=== PATIENT | female | born 1995 | race Caucasian/White ===

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

== ENCOUNTER → 2017-03-19 | Outpatient (CLI) | payer BC | END | disposition home or self-care (01) | LOC: LABWHC1 13:43 | PROVIDERS: ATTEND Internal Medicine Endocrinology, Diabetes & Metabolism | DX: E03.8 Other specified hypothyroidism (principal); E55.9 Vitamin D deficiency, unspecified | CPT/HCPCS: 36415; 82306; 84443 ==

== ENCOUNTER → 2017-08-23 | Outpatient (CLI) | payer BC | END | disposition home or self-care (01) | LOC: LABWHC1 13:59 | PROVIDERS: ATTEND Internal Medicine Endocrinology, Diabetes & Metabolism | DX: E03.8 Other specified hypothyroidism (principal) | CPT/HCPCS: 36415; 84443 ==

== ENCOUNTER → 2018-05-27 | Outpatient (CLI) | payer BC | END | disposition home or self-care (01) | LOC: RADECHMAIN 11:57 | PROVIDERS: ATTEND Family Medicine | DX: R00.2 Palpitations (principal) | CPT/HCPCS: 93270; 93271 ==

== ENCOUNTER → 2018-09-18 | Outpatient (CLI) | payer BC | END | disposition home or self-care (01) | LOC: LABWHC1 14:48 | PROVIDERS: ATTEND Internal Medicine Endocrinology, Diabetes & Metabolism | DX: E55.9 Vitamin D deficiency, unspecified (principal); E03.9 Hypothyroidism, unspecified | CPT/HCPCS: 36415; 82306; 84443 ==

== ENCOUNTER → 2019-04-21 | Outpatient (CLI) | payer BC ==
[2019-04-22 01:44] LABS: T4, Free (Free Thyroxine) 1.5 ng/dL (0.80-1.80)
[2019-04-22 01:47] LABS: Thyroid Peroxidase Antibodies 479.5 U/mL (0.0-60.0)
== END | disposition home or self-care (01) ==
LOC: LABWHC1 16:28
PROVIDERS: ATTEND Internal Medicine Endocrinology, Diabetes & Metabolism
DX: E03.8 Other specified hypothyroidism (principal); E55.9 Vitamin D deficiency, unspecified
CPT/HCPCS: 36415; 82306; 84439; 84443; 84480; 86376

== ENCOUNTER 2019-09-29 02:22 | Emergency (ER) | payer BC ==
[2019-09-29 02:27] VITALS: BP 133/97; PULSE 99; RESP 18; TEMP 98.1
[2019-09-29] MEDS ORDERED: TOPICAL SKIN ADHESIVE 1 EACH AMP TOPICAL ONE (02:36)
[2019-09-29] MEDS ORDERED: ERYTHROMYCIN 5 MG/GM OPHTH OINT 3.5 GM TUBE RIGHT EYE STA (02:54)
--- NOTE | 2019-09-29 03:07 | ED ---
Wound/Laceration HPI - General Chief Complaint: Wound/Laceration Stated Complaint: Cat scratch Time Seen by Provider: 09/29/19 02:28 Source: patient Mode of arrival: ambulatory Limitations: no limitations - History of Present Illness Initial Comments: Patient is 24-year-old female presenting to emergency Department with a chief complaint of a cat scratch. Patient states she was playing with her cat when a scratch the right lower eyelid. Patient reports it was no injury to the eye. Denies any eye redness, itchiness or pain. Denies any pain with extra ocular movements. States there is a very small laceration on the right lower eyelid. Denies any blurry vision. States tetanus is up-to-date. - Related Data Home Medications Medication Instructions Recorded Confirmed Norgestimate-Ethinyl Estradiol 1 tab PO DAILY 12/22/15 12/22/15 [Ortho Tri-Cyclen 28 Tablet] Previous Rx's Medication Instructions Recorded Levothyroxine Sodium [Synthroid] 100 mcg PO DAILY #30 tab 12/22/15 Levothyroxine Sodium [Synthroid] 125 mcg PO DAILY #30 tablet 12/22/15 Azithromycin [Zithromax Z-pack] 0 mg PO DIRECTED #1 pack 09/29/19 Allergies Allergy/AdvReac Type Severity Reaction Status Date / Time sulfamethoxazole Allergy Swelling Verified 09/29/19 02:27 [From Bactrim] trimethoprim [From Bactrim] Allergy Swelling Verified 09/29/19 02:27 Review of Systems ROS Statement: Those systems with pertinent positive or pertinent negative responses have been documented in the HPI. ROS Other: All systems not noted in ROS Statement are negative. Past Medical History Past Medical History: Asthma, Thyroid Disorder Additional Past Medical History / Comment(s): Low Vitamin D. History of Any Multi-Drug Resistant Organisms: None Reported Past Surgical History: No Surgical Hx Reported Additional Past Surgical History / Comment(s): [place] tooth extraction Past Psychological History: No Psychological Hx Reported Past Alcohol Use History: None Reported Past Drug Use History: None Reported General Exam Limitations: no limitations General appearance: alert, in no apparent distress Head exam: Present: atraumatic, normocephalic, normal inspection Eye exam: Present: normal appearance, PERRL, EOMI. Absent: other (No pain with extraocular movements, no entrapment. Very small, superficial laceration of the right lower eyelid.) Pupils: Present: normal accommodation ENT exam: Present: normal exam, mucous membranes dry Neck exam: Present: normal inspection, full ROM. Absent: tenderness Respiratory exam: Present: normal lung sounds bilaterally. Absent: respiratory distress, wheezes Cardiovascular Exam: Present: regular rate, normal rhythm, normal heart sounds Extremities exam: Present: normal inspection, full ROM. Absent: tenderness Back exam: Present: normal inspection, full ROM. Absent: tenderness Neurological exam: Present: alert, oriented X3, normal gait Psychiatric exam: Present: normal affect, normal mood Skin exam: Present: warm, dry, intact, normal color Course Vital Signs 09/29/19 02:23 Temperature 98.1 F Pulse Rate 99 Respiratory 18 Rate Blood Pressure 133/97 O2 Sat by Pulse 99 Oximetry Medical Decision Making - Medical Decision Making patient is a 24-year-old female presenting to emergency department with chief complaint cat scratch. On exam patient has a very small, superficial laceration the right lower eyelid. No entrapment, no pain with extraocular movements, no foreign body. Laceration site was repaired with small amounts of tissue adhesive. Patient given erythromycin ointment to remove any access tissue adhesive that was stuck on the eyelashes. Patient will also be started on azithromycin to prevent development of cat scratch disease. Return parameters were thoroughly discussed the patient was worsening and agreeable. Case discussed with physician. Disposition Clinical Impression: Laceration, Cat scratch of face Disposition: HOME SELF-CARE Condition: Stable Instructions (If sedation given, give patient instructions): Skin Adhesive Care (ED) Additional Instructions: Take prescribed medication as directed. Follow with primary care physician. Return to emergency department if symptoms worsen. Prescriptions: Azithromycin [Zithromax Z-pack] 0 mg PO DIRECTED #1 pack Is patient prescribed a controlled substance at d/c from ED?: No Referrals: Suleiman Almeida DO [Primary Care Provider] - 1-2 days Time of Disposition: 03:06
== END 2019-09-29 03:24 | disposition home or self-care (01) ==
LOC: EC 02:22
DX: S01.111A Laceration without foreign body of right eyelid and periocular area, initial encounter (principal); Z79.3 Long term (current) use of hormonal contraceptives; Z88.1 Allergy status to other antibiotic agents; Z88.2 Allergy status to sulfonamides; W55.03XA Scratched by cat, initial encounter
CPT/HCPCS: 12011; 99282

== ENCOUNTER → 2019-10-21 | Outpatient (CLI) | payer BC | END | disposition home or self-care (01) | LOC: LABWHC1 14:18 | PROVIDERS: ATTEND Internal Medicine Endocrinology, Diabetes & Metabolism | DX: E03.8 Other specified hypothyroidism (principal) | CPT/HCPCS: 36415; 84443 ==

== ENCOUNTER → 2022-10-20 | Outpatient (CLI) | payer BC ==
[2022-10-20 16:57] LABS: ALT 15 U/L (8-44); AST 25 U/L (13-35); Albumin 4.6 d/dL (3.8-4.9); Albumin/Globulin Ratio 1.77 Ratio (1.60-3.17); Alkaline Phosphatase 46 U/L (41-126); BUN/Creat Ratio 10.33 Ratio (12.00-20.00); Blood Urea Nitrogen 9.3 mg/dL (9.0-27.0); Calcium 9.4 mg/dL (8.7-10.3); Carbon Dioxide 23.7 mmol/L (21.6-31.8); Chloride 102 mmol/L (96-109); Chol/HDL Ratio 2.93 Ratio; Globulin 2.6 d/dL (1.6-3.3); Glucose 86 mg/dL (70-110); LDL Cholesterol,Calculated 81.6 mg/dL (0.0-131.0); Potassium 4.3 mmol/L (3.5-5.5); Sodium 138 mmol/L (135-145); T4, Free (Free Thyroxine) 0.89 ng/dL (0.80-1.80); Total Bilirubin 0.5 mg/dL (0.3-1.2); Total Protein 7.2 d/dL (6.2-8.2)
[2022-10-20 23:41] LABS: Basophils # (A) 0.03 X 10*3/uL (0.00-0.10); Basophils % (A) 0.7 %; Eosinophils # (A) 0.08 X 10*3/uL (0.04-0.35); Eosinophils % (A) 1.9 %; HCT 41.5 % (37.2-46.3); HGB 13.1 d/dL (12.0-15.0); Lymphocytes # (A) 1.66 X 10*3/uL (0.90-5.00); Lymphocytes % (A) 40.3 %; MCH 30.5 pg (27.0-32.0); MCHC 31.6 d/dL (32.0-37.0); MCV 96.7 FL (80.0-97.0); Mean Platelet Volume 12.2 FL (9.5-12.2); Monocytes # (A) 0.36 X 10*3/uL (0.20-1.00); Monocytes % (A) 8.7 %; NRBC Per 100 WBC 0 X 10*3/uL (0.00-0.01); Neutrophils # (A) 1.98 X 10*3/uL (1.80-7.70); Neutrophils % (A) 48.2 %; Platelet Count 159 X 10*3/uL (140-440); RBC 4.29 X 10*6/uL (4.10-5.20); RDW 12.9 % (11.5-14.5); WBC 4.12 X 10*3/uL (4.50-10.00)
== END | disposition home or self-care (01) ==
LOC: LABWHC1 10:22
PROVIDERS: ATTEND Advanced Practice Midwife
DX: F31.32 Bipolar disorder, current episode depressed, moderate (principal); F41.0 Panic disorder [episodic paroxysmal anxiety]; F43.11 Post-traumatic stress disorder, acute
CPT/HCPCS: 36415; 80053; 80061; 80178; 84439; 84443; 85025